=== PATIENT | male | born 1985 | race African-American/Black ===

== ENCOUNTER 2020-03-14 10:50 | Emergency (ER) | payer MEDICAID ==
[~2020-03-14] VITALS: Ht 188 cm; Wt 90.7 kg
--- NOTE | 2020-03-14 10:55 | NUR ---
AAOX3, CAME TO ER FOR MEDICAL CLEARANCE, PLAN IS TO JUMP INTO THE TRAFFIC. PATIENT WISH TO GO TO [facility] FOR VOLUNTARY ADMISSION. RR IS EVEN AND UNLABORED WITH NAD NOTED. SKIN IS WARM AND DRY. AWAITING MD FOR EVAL.
--- NOTE | 2020-03-14 11:40 | NUR ---
Workforce Planning Analyst consult for this patient was conducted as patient wanted to go voluntary to a psychiatrics facility. Patient is a 34 year-old -[place] Island[place] Male, alert and orientedx4. Patient confirmed demographics including date of and social security number. Patient reported that he does collect food stamps but would not provide approximately how much stating "varies month to month". Patient stated alcohol use varies "regular, on occasion" but did not want to elaborate. Patient reporting suicidal ideations to jump in front of a car. Patient reported schizophrenia, bipolar and depression diagnoses and reports going to a hosptial the form of him receiving his medications. Patient would like to go voluntary to [facility].
[2020-03-14 12:05] LABS: BASOPHILS % (AUTO) 0.8 % (0.0-2.0); EOSINOPHILS % (AUTO) 2.8 % (0.0-6.0); HEMATOCRIT 35 % (39-51); HEMOGLOBIN 12.4 g/dL (13.5-17.5); LYMPHOCYTES # (AUTO) 1.8 /CMM (0.8-4.8); LYMPHOCYTES % (AUTO) 44.9 % (20.0-44.0); MEAN CORPUSCULAR HGB CONC 35 g/dl (31.0-36.0); MEAN CORPUSCULAR VOLUME 78 fL (80-96); MONOCYTES # (AUTO) 0.3 /CMM (0.1-1.30); MONOCYTES % (AUTO) 6.9 % (2.0-12.0); NEUTROPHILS # (AUTO) 1.7 /CMM (1.8-8.9); NEUTROPHILS % (AUTO) 44.6 % (43.0-81.0); PLATELET COUNT (AUTO) 197 /CMM (150-450); RED BLOOD CELL COUNT(AUTO) 4.56 MIL/uL (4.5-6.0); WHITE BLOOD COUNT (AUTO) 3.9 K/uL (4.3-11.0)
[2020-03-14 12:08] LABS: APPEARANCE,URINE Clear (CLEAR); BILIRUBIN,URINE Negative (NEGATIVE); BLOOD, URINE Negative Ery/uL (NEGATIVE); COLOR,URINE Yellow (YELLOW); KETONES,URINE Negative (NEGATIVE); LEUKOCYTE ESTERASE ,URINE Negative (NEGATIVE); NITRITE, URINE Negative (NEGATIVE); PH,URINE 6.5 (5.0-8.0); PROTEIN,URINE Negative (NEGATIVE); UGLUCOSE Negative (NEGATIVE)
[2020-03-14 12:18] LABS: ALANINE AMINOTRANSFERASE 35 U/L (12-78); ALBUMIN 3.9 g/dL (3.4-5.0); ALKALINE PHOSPHATASE 55 U/L (46-116); ASPARTATE AMINOTRANSFERASE 26 U/L (15-37); BILIRUBIN,DIRECT 0.2 mg/dL (0.0-0.2); BILIRUBIN,TOTAL 0.8 mg/dL (0.2-1.0); CALCIUM, SERUM 8.7 mg/dL (8.5-10.1); CARBON DIOXIDE 31 mmol/L (21-32); CHLORIDE 105 mmol/L (98-107); CREATININE 0.9 mg/dL (0.6-1.3); GLUCOSE 94 mg/dL (74-106); POTASSIUM 3.7 mmol/L (3.5-5.1); SODIUM SERUM 141 mmol/L (136-145); UREA NITROGEN, BLOOD 13 mg/dL (7-18)
[2020-03-14 12:19] LABS: ACETAMINOPHEN < 2 ug/ml (10-30); ALCOHOL, BLOOD < 3 mg/dL (0-0); SALICYLATE 0.4 mg/dL (2.8-20.0)
--- NOTE | 2020-03-14 13:09 | NUR ---
Gauri mccann in ED - 03/14/20 at 1313 by GIOVANA TRANSFER INFO: [facility] GO TO [facility] ACCEPTED BY DR WATKINS, PLEASE CALL MEREDITH MESA FOR REPORT AT [phone] [facility] ETA 1434
--- NOTE | 2020-03-14 13:11 | NUR ---
TRANSFER INFO: PT WILL GO TO [facility] ACCEPTED BY DR WATKINS, PLEASE CALL MEREDITH MESA FOR REPORT AT [phone] [facility] ETA 1438
--- NOTE | 2020-03-14 13:12 | NUR ---
CALLED [facility] ETA 1435
[2020-03-14 13:16] VITALS: BP 118/75
--- NOTE | 2020-03-14 13:17 | NUR ---
REPORT GIVEN TO MOSHE HARPERSAMPLE COORDINATOR
--- NOTE | 2020-03-14 15:01 | NUR ---
REPORT GIVEN TO PATIENT FINANCIAL REP. PATIENT TRANSFERRED TO [facility] IN NO DSITRESS.
== END 2020-03-14 15:02 ==
LOC: ER 10:52
DX: R45.851 Suicidal ideations (principal); F20.9 Schizophrenia, unspecified; F32.9 Major depressive disorder, single episode, unspecified; Z04.6 Encounter for general psychiatric examination, requested by authority
CPT/HCPCS: 36415; 80048; 80076; 80305; 80307; 80329; 81001; 85025; 99285; G0480; 81000-TC

== ENCOUNTER 2020-07-16 05:06 | Emergency (ER) | payer MEDICAID ==
[~2020-07-16] VITALS: Ht 182.9 cm; Wt 86.2 kg
--- NOTE | 2020-07-16 05:45 | NUR ---
CALLED PT IN WR X3. NO ONE RESPONDED. WILL FOLLOW UP.
--- NOTE | 2020-07-16 06:01 | NUR ---
CALLED PT IN WR. NO ONE RESPONDED. WILL FOLLOW UP
--- NOTE | 2020-07-16 06:09 | NUR ---
called pt in wr x3. no one responded.
--- NOTE | 2020-07-16 06:27 | NUR ---
call pt in wr x3. no one responded. will follow up
--- NOTE | 2020-07-16 06:43 | NUR ---
BIBSELF HEARING VOICES +SI PLAN TO CUT HIMSELF -HI. PT AOX4 RR EVEN AND UNLABORED. NO SOB NOTED. NO NVD AT THIS TIME. NO ACUTE DISTRESS NOTED. PT WAITING FOR MD PAEZ. PT PERSONAL BELONGINGS COLLECTED, PLACED IN A STORED AREA. PT CALM AT THIS TIME. PROVIDED PT WITH PLAN OF CARE. PT VERBALIZED UNDERSTANDING. PT PROVIDED UA.
--- NOTE | 2020-07-16 07:25 | NUR ---
CALLED SECURITY FOR WANDING.
--- NOTE | 2020-07-16 07:50 | NUR ---
REPORT GIVEN TO LIBIA RUTLEDGE FOR CONTINUITY OF CARE.
[2020-07-16 08:17] LABS: BASOPHILS % (AUTO) 0.5 % (0.0-2.0); EOSINOPHILS % (AUTO) 1.2 % (0.0-6.0); HEMATOCRIT 44 % (39-51); HEMOGLOBIN 15.5 g/dL (13.5-17.5); LYMPHOCYTES # (AUTO) 1.7 /CMM (0.8-4.8); LYMPHOCYTES % (AUTO) 27.4 % (20.0-44.0); MEAN CORPUSCULAR HGB CONC 35 g/dl (31.0-36.0); MEAN CORPUSCULAR VOLUME 78 fL (80-96); MONOCYTES # (AUTO) 0.5 /CMM (0.1-1.30); MONOCYTES % (AUTO) 7.8 % (2.0-12.0); NEUTROPHILS % (AUTO) 63.1 % (43.0-81.0); PLATELET COUNT (AUTO) 263 /CMM (150-450); RED BLOOD CELL COUNT(AUTO) 5.67 MIL/uL (4.5-6.0); WHITE BLOOD COUNT (AUTO) 6.3 K/uL (4.3-11.0)
[2020-07-16 08:25] LABS: CALCIUM, SERUM 9.1 mg/dL (8.5-10.1); CARBON DIOXIDE 28 mmol/L (21-32); CHLORIDE 101 mmol/L (98-107); CREATININE 0.8 mg/dL (0.6-1.3); GLUCOSE 79 mg/dL (74-106); POTASSIUM 3.9 mmol/L (3.5-5.1); SODIUM SERUM 137 mmol/L (136-145); UREA NITROGEN, BLOOD 12 mg/dL (7-18)
[2020-07-16 08:31] LABS: ALANINE AMINOTRANSFERASE 40 U/L (12-78); ALBUMIN 4.5 g/dL (3.4-5.0); ALCOHOL, BLOOD < 3 mg/dL (0-0); ALKALINE PHOSPHATASE 66 U/L (46-116); ASPARTATE AMINOTRANSFERASE 31 U/L (15-37); BILIRUBIN,DIRECT 0.4 mg/dL (0.0-0.2); BILIRUBIN,TOTAL 1.8 mg/dL (0.2-1.0); TOTAL PROTEIN, SERUM 8.4 g/dL (6.4-8.2)
[2020-07-16 08:36] LABS: ACETAMINOPHEN < 10 ug/ml (10-30)
--- NOTE | 2020-07-16 08:46 | NUR ---
COVID NEGATIVE TEST
[2020-07-16] MEDS ORDERED: QUETIAPINE FUMARATE 100 MG TABLET PO SCH (09:00)
--- NOTE | 2020-07-16 12:59 | NUR ---
Interior Design Consultant consult for this patient was conducted as patient wanted to go voluntary to a psychiatric facility. Patient is a 34-year-old Male, alert and oriented x4. Patient reported that he does collect food stamps but would not provide approximately how much stating "varies month to month". Patient stated alcohol use varies "regular, on occasion" but did not want to elaborate. Patient denied the use of drugs and cigarettes, however, patient tested positive for Methamphetamine and Cannabinoids. Patient reporting suicidal ideations to cut his wrist with a razor. Patient reported schizophrenia, bipolar and depression diagnoses but cannot report an approximation of these diagnoses. Patient prior to speaking with this SW stated he had spoken to his aerospace engineer officer armament to notify them that the patient is currently at [facility] ED for suicidal ideation. Patient stated that his aerospace engineer officer armament would like an update regarding next step of treatment. Patient informed that at this time he is in-between housing because his aerospace engineer officer armament is looking for another appropriate location for the patient. SW and patient discussed the need for homeless community resources, patient accepted these referrals. SW and patient discussed voluntary psychiatric hospitalization and patient was in agreement. SW informed the patient that this SW would refer the patient to [facility] for voluntary psychiatric hospitalization. Patient was calm and cooperative throughout this assessment. Patient asked this SW for food and SW informed patient that this SW would alert ED Staff to order a meal for the patient. Plan: SW to fax clinicals to [facility] regarding this patients request of voluntary psychiatric hospitalization. SW also informed Michael regarding this referral. SW will provide the patient an update regarding status of voluntary psychiatric hospitalization and have the patient sign the homeless patient waiver form. SW provided the following referrals to the patient: Substance Abuse resources provided included: [facility] Substance Abuse Self-Helpline (SAS) ; CRI -HELP [address]98 [facility]. [place] [address] ; [facility] [address] [facility] [address] ; [facility] Rehabilitation Program [address]33 [facility] [address] ; [facility] 400 [facility] [id number] ; [facility] [address] [facility] [address] ; [facility] [address] [facility] [phone] ; Hygiene: [facility]: [address] [place] ; [facility] [address] [facility] ; [facility] [address], [place] . Food Resources: [place] [facility] at [facility]- [address] [place]; Meet Each Need with Dignity ([facility]) [address] [place] CampusAditya [place]; [facility] Food Pantry 4305 [facility]; [facility] 8516 [facility]. Mental Health resources provided: [facility] [address] [place] [address] ; [facility] Mental Health [place] [address] [facility] [address], [place], [place] [id number] ; Farnam Elisa [facility] [address] Pé[address]Waverly, [place] [phone] ; [facility] [address] [place], [place] [phone] Healthcare Clinics: [facility] 6551 [facility], [address] [place]. [place] ; [facility] [address] [facility] [address] [place] [address]; [facility] [address] [facility]. [place] [id number] [phone]
--- NOTE | 2020-07-16 17:00 | NUR ---
PATIENT A/OX4, BREATHING EVEN AND UNLABORED, DENIES SI/HI ANYMORE. NO DISTRESS NOTED. DR. NEAL, NEEDS ATTENDED.
[2020-07-16 17:30] VITALS: BP 129/68
--- NOTE | 2020-07-16 17:30 | NUR ---
Patient discharged to home in stable condition. Written and verbal after care instructions given. Patient verbalizes understanding of instruction.
--- NOTE | 2020-07-16 17:30 | NUR ---
Patient discharged to home in stable condition. Written and verbal after care instructions given. Patient verbalizes understanding of instruction.
== END 2020-07-16 17:31 | disposition home or self-care (01) ==
LOC: ER 05:07
DX: R45.851 Suicidal ideations (principal); F19.10 Other psychoactive substance abuse, uncomplicated; F15.10 Other stimulant abuse, uncomplicated; F20.9 Schizophrenia, unspecified; Z91.14 Patient's other noncompliance with medication regimen; Z20.828 Contact with and (suspected) exposure to other viral communicable diseases
CPT/HCPCS: 36415; 80048; 80076; 80299; 80307; 80320; 85025; 87426; 99285; C9803; G0480

== ENCOUNTER 2020-10-27 17:23 | Emergency (ER) | payer MEDICAID ==
[~2020-10-27] VITALS: Ht 185.4 cm; Wt 99.8 kg
[2020-10-27 19:13] LABS: BILIRUBIN,URINE Negative (NEGATIVE); COLOR,URINE YELLOW (YELLOW); LEUKOCYTE ESTERASE ,URINE Negative (NEGATIVE); NITRITE, URINE Negative (NEGATIVE); PH,URINE 5.5 (5.0-8.0); PROTEIN,URINE Negative (NEGATIVE); UGLUCOSE Negative (NEGATIVE)
[2020-10-27 19:23] LABS: BACTERIA,URINE Rare /HPF (None Seen); RBC,URINE NONE SEEN /HPF (0-2); SQUAMOUS EPITHELIAL CELL,UR Few /HPF (None Seen); WBC,URINE NONE SEEN /HPF (0-3)
[2020-10-27 19:45] LABS: BASOPHILS # (AUTO) 0.1 /CMM (0.0-0.2); BASOPHILS % (AUTO) 1.3 % (0.0-2.0); EOSINOPHILS % (AUTO) 3.5 % (0.0-6.0); HEMATOCRIT 39 % (39-51); HEMOGLOBIN 13.9 g/dL (13.5-17.5); LYMPHOCYTES # (AUTO) 2.5 /CMM (0.8-4.8); LYMPHOCYTES % (AUTO) 31.3 % (20.0-44.0); MEAN CORPUSCULAR HGB CONC 36 g/dl (31.0-36.0); MEAN CORPUSCULAR VOLUME 76 fL (80-96); MONOCYTES # (AUTO) 0.4 /CMM (0.1-1.30); MONOCYTES % (AUTO) 5.2 % (2.0-12.0); NEUTROPHILS # (AUTO) 4.6 /CMM (1.8-8.9); NEUTROPHILS % (AUTO) 58.7 % (43.0-81.0); PLATELET COUNT (AUTO) 277 /CMM (150-450); RED BLOOD CELL COUNT(AUTO) 5.07 MIL/uL (4.5-6.0); WHITE BLOOD COUNT (AUTO) 7.8 K/uL (4.3-11.0)
[2020-10-27] MEDS ORDERED: OLANZAPINE 10 MG VIAL IM ONE ×2 (19:53→20:00)
--- NOTE | 2020-10-27 19:56 | NUR ---
Pt medicated as ordered by Dr Chau.
[2020-10-27 20:09] LABS: ALANINE AMINOTRANSFERASE 44 U/L (12-78); ALBUMIN 4.1 g/dL (3.4-5.0); ALCOHOL, BLOOD < 3 mg/dL (0-0); ALKALINE PHOSPHATASE 82 U/L (46-116); ASPARTATE AMINOTRANSFERASE 34 U/L (15-37); BILIRUBIN,DIRECT 0.1 mg/dL (0.0-0.2); BILIRUBIN,TOTAL 0.6 mg/dL (0.2-1.0); CARBON DIOXIDE 28 mmol/L (21-32); CHLORIDE 102 mmol/L (98-107); CREATININE 0.9 mg/dL (0.6-1.3); GLUCOSE 115 mg/dL (74-106); POTASSIUM 3.6 mmol/L (3.5-5.1); SODIUM SERUM 139 mmol/L (136-145); TOTAL PROTEIN, SERUM 7.5 g/dL (6.4-8.2); UREA NITROGEN, BLOOD 11 mg/dL (7-18)
[2020-10-27 20:10] LABS: ACETAMINOPHEN < 2 ug/ml (10-30)
--- NOTE | 2020-10-27 20:15 | NUR ---
Call from lab. Rapid covid negative.
--- NOTE | 2020-10-27 21:33 | NUR ---
CLINICAL AND FACESHEET FAXED TO [facility] FOR VOLUNTARY ADMISSION.
--- NOTE | 2020-10-28 00:18 | NUR ---
TRANSFER INFORMATION: PT ACCEPTED AT [facility] ACCEPTING MD OSORIO PHONE NUMBER FOR REPORT EXT [phone]
--- NOTE | 2020-10-28 00:22 | NUR ---
[facility] 45-60MIN ETA
--- NOTE | 2020-10-28 00:49 | NUR ---
REPORT CALLED TO LIBIA DIAZ. AWAITING TRANSPORT.
[2020-10-28 01:13] VITALS: BP 153/79
--- NOTE | 2020-10-28 01:38 | NUR ---
[facility] AT BEDSIDE FOR FIRE PROTECTION INSPECTOR. REPORT GIVEN
--- NOTE | 2020-10-28 01:42 | NUR ---
PT WAS TRANSFERRED TO [facility] [place]. ALL BELONGINGS WERE PICKED UP
== END 2020-10-28 01:45 ==
LOC: ER 17:27
DX: R45.851 Suicidal ideations (principal); F15.10 Other stimulant abuse, uncomplicated; F20.9 Schizophrenia, unspecified; F31.9 Bipolar disorder, unspecified; Z91.14 Patient's other noncompliance with medication regimen; Z59.0 Homelessness; R03.0 Elevated blood-pressure reading, without diagnosis of hypertension; Z20.822 Contact with and (suspected) exposure to COVID-19
CPT/HCPCS: 36415; 80048; 80076; 80299; 80307; 80320; 81001; 82550; 82553; 85025; 87426; 96372; 99285; C9803; J3490; G0480

== ENCOUNTER 2021-05-08 07:00 | Emergency (ER) | payer MEDICAID ==
[~2021-05-08] VITALS: Ht 190.5 cm; Wt 90.7 kg
[2021-05-08 07:48] LABS: BASOPHILS % (AUTO) 0.5 % (0.0-2.0); HEMATOCRIT 40 % (39-51); HEMOGLOBIN 14.2 g/dL (13.5-17.5); LYMPHOCYTES # (AUTO) 1.6 K/uL (0.8-4.8); LYMPHOCYTES % (AUTO) 27.1 % (20.0-44.0); MEAN CORPUSCULAR HGB CONC 36 g/dl (31.0-36.0); MEAN CORPUSCULAR VOLUME 78 fL (80-96); MONOCYTES # (AUTO) 0.6 K/uL (0.1-1.30); MONOCYTES % (AUTO) 9.8 % (2.0-12.0); NEUTROPHILS # (AUTO) 3.6 K/uL (1.8-8.9); NEUTROPHILS % (AUTO) 60.6 % (43.0-81.0); PLATELET COUNT (AUTO) 230 K/uL (150-450); RED BLOOD CELL COUNT(AUTO) 5.14 MIL/uL (4.5-6.0); WHITE BLOOD COUNT (AUTO) 5.9 K/uL (4.3-11.0)
[2021-05-08 08:04] LABS: ALANINE AMINOTRANSFERASE 46 U/L (12-78); ALBUMIN 4.4 g/dL (3.4-5.0); ALKALINE PHOSPHATASE 72 U/L (46-116); ASPARTATE AMINOTRANSFERASE 36 U/L (15-37); BILIRUBIN,DIRECT 0.3 mg/dL (0.0-0.2); BILIRUBIN,TOTAL 1.6 mg/dL (0.2-1.0); CALCIUM, SERUM 8.7 mg/dL (8.5-10.1); CARBON DIOXIDE 33 mmol/L (21-32); CHLORIDE 101 mmol/L (98-107); CREATININE 0.8 mg/dL (0.6-1.3); GLUCOSE 96 mg/dL (74-106); POTASSIUM 3.6 mmol/L (3.5-5.1); SODIUM SERUM 139 mmol/L (136-145); TOTAL PROTEIN, SERUM 7.9 g/dL (6.4-8.2); UREA NITROGEN, BLOOD 17 mg/dL (7-18)
[2021-05-08 08:15] LABS: ACETAMINOPHEN < 10 ug/ml (10-30); ALCOHOL, BLOOD < 3 mg/dL (0-0)
--- NOTE | 2021-05-08 08:41 | NUR ---
COVID SWAB DONE AND SENT TO LAB
[2021-05-08 10:56] LABS: BILIRUBIN,URINE SMALL (NEGATIVE); COLOR,URINE YELLOW (YELLOW); LEUKOCYTE ESTERASE ,URINE Negative (NEGATIVE); NITRITE, URINE Negative (NEGATIVE); PROTEIN,URINE Negative (NEGATIVE); UGLUCOSE Negative (NEGATIVE)
[2021-05-08 11:16] LABS: BACTERIA,URINE Few /HPF (None Seen); RBC,URINE 0-2 /HPF (0-2); SQUAMOUS EPITHELIAL CELL,UR Few /HPF (None Seen); WBC,URINE 0-2 /HPF (0-3)
--- NOTE | 2021-05-08 12:02 | NUR ---
[facility]
--- NOTE | 2021-05-08 16:29 | NUR ---
CALLED [facility] PT ACCEPTED TO [facility] UNDER DR. OSORIO & DR. AGUILAR CALL [phone] X [phone] FOR REPORT.
--- NOTE | 2021-05-08 16:35 | NUR ---
ACCEPTED BY DR CHENEY,REPORT TO [phone]
--- NOTE | 2021-05-08 16:35 | NUR ---
CALLED [facility] WITH ETA OF 60 MINS PER ANASTACIA.
--- NOTE | 2021-05-08 16:35 | NUR ---
CALL FROM ELIER,INTAKE
--- NOTE | 2021-05-08 16:58 | NUR ---
REPORT GIVEN TO NURSE VALLADARES FROM [facility]
--- NOTE | 2021-05-08 17:19 | NUR ---
REPORT GIVEN TO AMBULANCE STAFF
[2021-05-08 17:40] VITALS: BP 135/82
--- NOTE | 2021-05-08 17:40 | NUR ---
THE PATIENT IS TRANSFERED TO [facility] IN STABLE CONDITION VIA ARRANGED TRANSPO.
== END 2021-05-08 17:40 ==
LOC: ER 07:01
DX: R45.851 Suicidal ideations (principal); F31.9 Bipolar disorder, unspecified; F20.9 Schizophrenia, unspecified; Z59.00 Homelessness unspecified; R03.0 Elevated blood-pressure reading, without diagnosis of hypertension; Z20.822 Contact with and (suspected) exposure to COVID-19; F15.10 Other stimulant abuse, uncomplicated; F17.210 Nicotine dependence, cigarettes, uncomplicated
CPT/HCPCS: 36415; 80048; 80076; 80143; 80307; 80320; 81001; 85025; 87426; 99285; C9803; G0480

== ENCOUNTER 2021-07-05 07:25 | Emergency (ER) | payer MEDICAID ==
[~2021-07-05] VITALS: Ht 188 cm; Wt 97.5 kg
--- NOTE | 2021-07-05 07:59 | NUR ---
DR BORGES AT BEDSIDE FOR EVAL.
--- NOTE | 2021-07-05 08:55 | NUR ---
COVID SWAB DONE AND SENT
[2021-07-05 09:08] LABS: BASOPHILS # (AUTO) 0.1 K/uL (0.0-0.2); EOSINOPHILS % (AUTO) 1.3 % (0.0-6.0); HEMATOCRIT 41 % (39-51); HEMOGLOBIN 14.4 g/dL (13.5-17.5); LYMPHOCYTES # (AUTO) 1.8 K/uL (0.8-4.8); LYMPHOCYTES % (AUTO) 22.1 % (20.0-44.0); MEAN CORPUSCULAR HGB CONC 35 g/dl (31.0-36.0); MEAN CORPUSCULAR VOLUME 76 fL (80-96); MONOCYTES # (AUTO) 0.9 K/uL (0.1-1.30); MONOCYTES % (AUTO) 10.4 % (2.0-12.0); NEUTROPHILS # (AUTO) 5.4 K/uL (1.8-8.9); NEUTROPHILS % (AUTO) 65.2 % (43.0-81.0); PLATELET COUNT (AUTO) 236 K/uL (150-450); RED BLOOD CELL COUNT(AUTO) 5.37 MIL/uL (4.5-6.0); WHITE BLOOD COUNT (AUTO) 8.3 K/uL (4.3-11.0)
--- NOTE | 2021-07-05 09:20 | NUR ---
PT STILL UNABLE TO PROVIDE URINE SAMPLE AT THIS TIME.
[2021-07-05 09:39] LABS: CALCIUM, SERUM 8.8 mg/dL (8.5-10.1); CARBON DIOXIDE 31 mmol/L (21-32); CHLORIDE 100 mmol/L (98-107); CREATININE 0.9 mg/dL (0.6-1.3); GLUCOSE 106 mg/dL (74-106); POTASSIUM 3.9 mmol/L (3.5-5.1); SODIUM SERUM 136 mmol/L (136-145); UREA NITROGEN, BLOOD 17 mg/dL (7-18)
[2021-07-05 09:45] LABS: ALANINE AMINOTRANSFERASE 55 U/L (12-78); ALBUMIN 4.2 g/dL (3.4-5.0); ALKALINE PHOSPHATASE 70 U/L (46-116); ASPARTATE AMINOTRANSFERASE 62 U/L (15-37); BILIRUBIN,DIRECT 0.3 mg/dL (0.0-0.2); BILIRUBIN,TOTAL 1.6 mg/dL (0.2-1.0); TOTAL PROTEIN, SERUM 7.7 g/dL (6.4-8.2)
[2021-07-05 10:01] LABS: ACETAMINOPHEN 0 ug/ml (10-30)
[2021-07-05 10:02] LABS: ALCOHOL, BLOOD < 3 mg/dL (0-0)
[2021-07-05 10:59] LABS: BILIRUBIN,URINE Negative (NEGATIVE); COLOR,URINE YELLOW (YELLOW); LEUKOCYTE ESTERASE ,URINE Negative (NEGATIVE); NITRITE, URINE Negative (NEGATIVE); PROTEIN,URINE Trace mg/dl (NEGATIVE); UGLUCOSE Negative (NEGATIVE)
[2021-07-05 11:01] LABS: BACTERIA,URINE Rare /HPF (None Seen); RBC,URINE NONE SEEN /HPF (0-2); SQUAMOUS EPITHELIAL CELL,UR Few /HPF (None Seen); WBC,URINE NONE SEEN /HPF (0-3)
--- NOTE | 2021-07-05 13:46 | NUR ---
FAXED CLINICALS TO [facility].
--- NOTE | 2021-07-05 15:47 | NUR ---
PT ACCEPTED TO [facility] REPORT: UNIT #[phone]
--- NOTE | 2021-07-05 16:08 | NUR ---
[facility] TRANSPORT [facility]IA [facility] ETA 1800 TO [facility].
--- NOTE | 2021-07-05 16:46 | NUR ---
ATTEMPTED TO GIVE REPORT, WILL CALL AGAIN
--- NOTE | 2021-07-05 17:55 | NUR ---
REPORT GIVEN TO CHERIE MELGAR
[2021-07-05 18:40] VITALS: BP 132/69
--- NOTE | 2021-07-05 19:02 | NUR ---
PICKED UP BY [facility] IN STABLE CONDITION
== END 2021-07-05 19:03 ==
LOC: ER 07:27
DX: R45.851 Suicidal ideations (principal); F15.10 Other stimulant abuse, uncomplicated; Z59.02 Unsheltered homelessness; Z20.822 Contact with and (suspected) exposure to COVID-19; F31.9 Bipolar disorder, unspecified; F20.9 Schizophrenia, unspecified
CPT/HCPCS: 36415; 80048; 80076; 80143; 80307; 80320; 81001; 85025; 87426; 99285; C9803; G0480

== ENCOUNTER 2021-09-10 09:24 | Emergency (ER) | payer MEDICAID ==
[~2021-09-10] VITALS: Ht 182.9 cm; Wt 102.1 kg
--- NOTE | 2021-09-10 10:00 | NUR ---
The patient bibs for Hearing Voices and want [place] go [place]. The patient is alert and oriented x3. Denies pain. In room air and denies SOB. Respiration regular and unlabored. Will continue to monitor the patient.
[2021-09-10 10:46] LABS: BASOPHILS # (AUTO) 0.1 K/uL (0.0-0.2); BASOPHILS % (AUTO) 0.8 % (0.0-2.0); HEMATOCRIT 45 % (39-51); HEMOGLOBIN 15.5 g/dL (13.5-17.5); LYMPHOCYTES # (AUTO) 1.5 K/uL (0.8-4.8); LYMPHOCYTES % (AUTO) 19.3 % (20.0-44.0); MEAN CORPUSCULAR HGB CONC 35 g/dl (31.0-36.0); MEAN CORPUSCULAR VOLUME 75 fL (80-96); MONOCYTES # (AUTO) 0.5 K/uL (0.1-1.30); NEUTROPHILS # (AUTO) 5.5 K/uL (1.8-8.9); NEUTROPHILS % (AUTO) 72.9 % (43.0-81.0); PLATELET COUNT (AUTO) 255 K/uL (150-450); RED BLOOD CELL COUNT(AUTO) 5.93 MIL/uL (4.5-6.0); WHITE BLOOD COUNT (AUTO) 7.6 K/uL (4.3-11.0)
--- NOTE | 2021-09-10 10:50 | NUR ---
COVID ANTIGEN SWAB DONE AND SENT TO THE LAB
[2021-09-10 11:08] LABS: ALANINE AMINOTRANSFERASE 58 U/L (12-78); ALBUMIN 4.4 g/dL (3.4-5.0); ALCOHOL, BLOOD < 3 mg/dL (0-0); ALKALINE PHOSPHATASE 77 U/L (46-116); ASPARTATE AMINOTRANSFERASE 47 U/L (15-37); BILIRUBIN,DIRECT 0.2 mg/dL (0.0-0.2); BILIRUBIN,TOTAL 1.3 mg/dL (0.2-1.0); CALCIUM, SERUM 9.8 mg/dL (8.5-10.1); CARBON DIOXIDE 28 mmol/L (21-32); CHLORIDE 100 mmol/L (98-107); CREATININE 0.9 mg/dL (0.6-1.3); GLUCOSE 108 mg/dL (74-106); POTASSIUM 4.2 mmol/L (3.5-5.1); SODIUM SERUM 136 mmol/L (136-145); TOTAL PROTEIN, SERUM 8.3 g/dL (6.4-8.2); UREA NITROGEN, BLOOD 15 mg/dL (7-18)
--- NOTE | 2021-09-10 11:12 | NUR ---
URINE COLLECTED AND SENT TO THE LAB
[2021-09-10 11:25] LABS: BILIRUBIN,URINE SMALL (NEGATIVE); COLOR,URINE YELLOW (YELLOW); LEUKOCYTE ESTERASE ,URINE NEGATIVE (NEGATIVE); NITRITE, URINE NEGATIVE (NEGATIVE); PROTEIN,URINE NEGATIVE (NEGATIVE); UGLUCOSE NEGATIVE (NEGATIVE); UROBILINOGEN,URINE 0.2 EU/dL (0.2)
--- NOTE | 2021-09-10 13:01 | NUR ---
FAXED CLINICALS TO [facility] IN[facility].
--- NOTE | 2021-09-10 16:23 | NUR ---
JOES called [facility] [phone] and spoke to KATJA Osborn regarding acceptance for Tx. Katja stated the nurse coal handling supervisor is in a meeting but they will call [facility] directly at 5 pm with decision.
[2021-09-10 16:52] LABS: ACETAMINOPHEN < 0 ug/ml (10-30)
--- NOTE | 2021-09-10 17:15 | NUR ---
THE PATIENT IS ACCEPTED TO [facility] UNDER DR BROUSSARD [facility] WILL ARRANGE TRANSPO
--- NOTE | 2021-09-10 17:21 | NUR ---
REPORT GIVEN TO NURSE BAUTISTA FROM [facility] FOR [facility]
--- NOTE | 2021-09-10 17:47 | NUR ---
INTAKE CALLED GR[facility]OOK WILL REAM CUTTER PATIENT IN 20 MINS PER PATITO.
--- NOTE | 2021-09-10 18:00 | NUR ---
local combination truck driver from [place] [facility] [place] picked up patient for psych voluntary admit NO acute changes-cooperative and easily directable
[2021-09-10 18:48] VITALS: BP 130/70
== END 2021-09-10 18:49 ==
LOC: ER 09:26
DX: R45.851 Suicidal ideations (principal); F15.10 Other stimulant abuse, uncomplicated; Z59.00 Homelessness unspecified; F20.9 Schizophrenia, unspecified; F31.9 Bipolar disorder, unspecified; Z20.822 Contact with and (suspected) exposure to COVID-19
CPT/HCPCS: 36415; 80048; 80076; 80143; 80307; 80320; 81003; 85025; 87426; 99285; C9803; G0480

== ENCOUNTER 2021-10-26 16:55 | Emergency (ER) | payer MEDICAID ==
[~2021-10-26] VITALS: Ht 188 cm; Wt 99.8 kg
[2021-10-26 17:12] VITALS: BP 120/75
--- NOTE | 2021-10-26 17:14 | NUR ---
TO ER 18,SUICIDAL PRECAUTION IMPLEMENTED,1:1 SITTER.
--- NOTE | 2021-10-26 17:15 | NUR ---
REQUESTING VOLUNTARY ADMISSION TO [facility],FEELING SUICIDAL BY CUTTING HIMSELF
[2021-10-26 17:43] LABS: BASOPHILS # (AUTO) 0.1 K/uL (0.0-0.2); BASOPHILS % (AUTO) 1.1 % (0.0-2.0); EOSINOPHILS % (AUTO) 2.5 % (0.0-6.0); HEMATOCRIT 37 % (39-51); HEMOGLOBIN 13.5 g/dL (13.5-17.5); LYMPHOCYTES # (AUTO) 2.3 K/uL (0.8-4.8); LYMPHOCYTES % (AUTO) 25.8 % (20.0-44.0); MEAN CORPUSCULAR HGB CONC 36 g/dl (31.0-36.0); MEAN CORPUSCULAR VOLUME 74 fL (80-96); MONOCYTES # (AUTO) 0.6 K/uL (0.1-1.30); MONOCYTES % (AUTO) 6.7 % (2.0-12.0); NEUTROPHILS # (AUTO) 5.8 K/uL (1.8-8.9); NEUTROPHILS % (AUTO) 63.9 % (43.0-81.0); PLATELET COUNT (AUTO) 269 K/uL (150-450); RED BLOOD CELL COUNT(AUTO) 5.04 MIL/uL (4.5-6.0); WHITE BLOOD COUNT (AUTO) 9.1 K/uL (4.3-11.0)
[2021-10-26 18:40] LABS: ALANINE AMINOTRANSFERASE 69 U/L (12-78); ALBUMIN 4.2 g/dL (3.4-5.0); ALCOHOL, BLOOD < 3 mg/dL (0-0); ALKALINE PHOSPHATASE 77 U/L (46-116); ASPARTATE AMINOTRANSFERASE 93 U/L (15-37); BILIRUBIN,DIRECT 0.2 mg/dL (0.0-0.2); BILIRUBIN,TOTAL 1.1 mg/dL (0.2-1.0); CALCIUM, SERUM 8.5 mg/dL (8.5-10.1); CARBON DIOXIDE 26 mmol/L (21-32); CHLORIDE 99 mmol/L (98-107); GLUCOSE 93 mg/dL (74-106); POTASSIUM 2.9 mmol/L (3.5-5.1); SODIUM SERUM 138 mmol/L (136-145); TOTAL PROTEIN, SERUM 7.8 g/dL (6.4-8.2); UREA NITROGEN, BLOOD 10 mg/dL (7-18)
[2021-10-26 18:41] LABS: ACETAMINOPHEN < 2 ug/ml (10-30)
--- NOTE | 2021-10-26 22:11 | NUR ---
URINE SPECIMEN COLLECTED AND SENT TO LAB.
[2021-10-26 23:20] LABS: BILIRUBIN,URINE NEGATIVE (NEGATIVE); COLOR,URINE ORANGE (YELLOW); LEUKOCYTE ESTERASE ,URINE NEGATIVE (NEGATIVE); NITRITE, URINE NEGATIVE (NEGATIVE); PH,URINE 5.5 (5.0-8.0); PROTEIN,URINE TRACE mg/dl (NEGATIVE); UGLUCOSE NEGATIVE (NEGATIVE)
[2021-10-26 23:59] LABS: BAND % (MANUAL) 1 % (0.0-5.0); BASOPHILS % (MANUAL) 1 % (0.0-2.0); EOSINOPHILS % (MANUAL) 3 % (0-4); LYMPHOCYTES % (MANUAL) 26 % (16-48)
[2021-10-27] LABS: MONOCYTES % (MANUAL) 6 % (0-11.0); NEUTROPHILS % (MANUAL) 63 (42-76)
--- NOTE | 2021-10-27 01:08 | NUR ---
FACESHEET AND CLINICALS FAXED TO [facility].
--- NOTE | 2021-10-27 03:36 | NUR ---
ACCEPTING INFO: [facility] / DR. OSORIO / NUMBER FOR REPORT: [phone]
--- NOTE | 2021-10-27 04:26 | NUR ---
[facility] ETA 1 HOUR
--- NOTE | 2021-10-27 04:36 | NUR ---
REPORT GIVEN TO EMERLINDA [facility] FOR [facility]
--- NOTE | 2021-10-27 05:30 | NUR ---
[facility] AT BEDSIDE FOR TRANSPIORT.
== END 2021-10-27 06:46 ==
LOC: ER 17:03
DX: R45.851 Suicidal ideations (principal); F20.9 Schizophrenia, unspecified; F31.9 Bipolar disorder, unspecified; Z20.822 Contact with and (suspected) exposure to COVID-19
CPT/HCPCS: 36415; 80048; 80076; 80143; 80307; 80320; 81003; 85007; 85025; 87426; 99285; C9803; G0480

== ENCOUNTER 2021-12-14 01:43 | Emergency (ER) | payer MEDICAID ==
[~2021-12-14] VITALS: Ht 188 cm; Wt 108.9 kg
[2021-12-14] MEDS ORDERED: QUETIAPINE FUMARATE 25 MG TABLET ONE (02:17)
--- NOTE | 2021-12-14 02:20 | NUR ---
BIBS FOR C/O HEARING VOICES AND SI. REQUESTING VOLUNTARY PSYCH ADMISSION. PATIENT IS A/O X 4, RR EVEN AND UNLABORED NO SOB NOTED. PATIENT NOTED WITH STEADY GAIT. PT TAKEN TO ER BED 18. PATIENT PLACED IN HOSPITAL GOWN, BELONGING TAKEN AND PLACED IN PT LOCKER. SITTER AT BEDSIDE. PT VSS, PT AFEBRILE. WILL CONTINUE TO MONITOR.
--- NOTE | 2021-12-14 02:28 | NUR ---
URINE COLLECTED SENT TO LAB
--- NOTE | 2021-12-14 02:29 | NUR ---
COVID SWAB COLLECTED SENT TO LAB
[2021-12-14] MEDS ORDERED: QUETIAPINE FUMARATE 25 MG TABLET PO SCH (02:30)
[2021-12-14 02:32] LABS: BASOPHILS % (AUTO) 0.6 % (0.0-2.0); EOSINOPHILS % (AUTO) 3.1 % (0.0-6.0); HEMATOCRIT 42 % (39-51); HEMOGLOBIN 14.7 g/dL (13.5-17.5); LYMPHOCYTES # (AUTO) 2.9 K/uL (0.8-4.8); MEAN CORPUSCULAR HGB CONC 35 g/dl (31.0-36.0); MEAN CORPUSCULAR VOLUME 74 fL (80-96); MONOCYTES # (AUTO) 0.5 K/uL (0.1-1.30); MONOCYTES % (AUTO) 6.8 % (2.0-12.0); NEUTROPHILS # (AUTO) 3.8 K/uL (1.8-8.9); NEUTROPHILS % (AUTO) 50.5 % (43.0-81.0); PLATELET COUNT (AUTO) 241 K/uL (150-450); RED BLOOD CELL COUNT(AUTO) 5.61 MIL/uL (4.5-6.0); WHITE BLOOD COUNT (AUTO) 7.5 K/uL (4.3-11.0)
[2021-12-14 02:42] LABS: CARBON DIOXIDE 35 mmol/L (21-32); CHLORIDE 103 mmol/L (98-107); CREATININE 1.1 mg/dL (0.6-1.3); GLUCOSE 71 mg/dL (74-106); POTASSIUM 3.3 mmol/L (3.5-5.1); SODIUM SERUM 142 mmol/L (136-145); UREA NITROGEN, BLOOD 11 mg/dL (7-18)
[2021-12-14 02:49] LABS: ALANINE AMINOTRANSFERASE 60 U/L (12-78); ALBUMIN 4.5 g/dL (3.4-5.0); ALKALINE PHOSPHATASE 77 U/L (46-116); ASPARTATE AMINOTRANSFERASE 44 U/L (15-37); BILIRUBIN,DIRECT 0.1 mg/dL (0.0-0.2); BILIRUBIN,TOTAL 0.8 mg/dL (0.2-1.0); TOTAL PROTEIN, SERUM 8.4 g/dL (6.4-8.2)
[2021-12-14 02:51] LABS: ACETAMINOPHEN 0 ug/ml (10-30); ALCOHOL, BLOOD < 3 mg/dL (0-0)
--- NOTE | 2021-12-14 04:31 | NUR ---
PROVIDED PT WITH WARM BLANKET, WILL CONTINUE TO MONITOR
[2021-12-14 04:47] LABS: BILIRUBIN,URINE SMALL (NEGATIVE); COLOR,URINE DARK YELLOW (YELLOW); LEUKOCYTE ESTERASE ,URINE NEGATIVE (NEGATIVE); NITRITE, URINE NEGATIVE (NEGATIVE); PH,URINE 5.5 (5.0-8.0); PROTEIN,URINE NEGATIVE (NEGATIVE); UGLUCOSE NEGATIVE (NEGATIVE)
--- NOTE | 2021-12-14 05:12 | NUR ---
FACESHEET AND CLINICALS FAXED TO [facility],.
--- NOTE | 2021-12-14 09:04 | NUR ---
CALLED [facility] REGARDING PT ACCEPTANCE AND WAS NOTIFIED THAT THE FACILITY IS STILL WAITING FOR DISCHARGES FOR THE PT TO BE ACCEPTED.
[2021-12-14 11:03] VITALS: BP 125/89
--- NOTE | 2021-12-14 11:30 | NUR ---
[facility] CALLED WITH PT ACCEPTANCE UNDER THE CARE OF DR. FELICIANO NUMBER FOR REPORT [phone] EXT. [phone]
--- NOTE | 2021-12-14 11:31 | NUR ---
CALLED [facility] AND SET UP BLS TRANSPORT ETA 1200
--- NOTE | 2021-12-14 13:12 | NUR ---
REPORT GIVEN TO YURIDIA FOR HAI
--- NOTE | 2021-12-14 13:13 | NUR ---
[facility] ARRIVED TO TRANSPORT PT TO [facility], PT IS AMNULATORY AND TRANSPORTED IN STABLE CONDITION.
== END 2021-12-14 13:14 ==
LOC: ER 01:45
DX: R45.851 Suicidal ideations (principal); F20.9 Schizophrenia, unspecified; F31.9 Bipolar disorder, unspecified; Z59.00 Homelessness unspecified; Z20.822 Contact with and (suspected) exposure to COVID-19; F15.10 Other stimulant abuse, uncomplicated
CPT/HCPCS: 36415; 80048; 80076; 80143; 80307; 80320; 81003; 85025; 87426; 99285; C9803; G0480

== ENCOUNTER 2022-02-25 07:08 | Emergency (ER) | payer MEDICAID ==
[~2022-02-25] VITALS: Ht 188 cm; Wt 108.9 kg
--- NOTE | 2022-02-25 07:15 | NUR ---
pt self presents to ed c/o suicidal ideation w/ plan to "cut his wrist." denies hi. pt seen in ed multiple times for same complaints. cooperative to staff. requesting voluntary psychiatric admission to [facility]. stable vitals. awaiting md chin.
--- NOTE | 2022-02-25 07:18 | NUR ---
seen and evaluated by reina mejia. with orders, will carry out.
[2022-02-25 07:38] LABS: BASOPHILS % (AUTO) 0.4 % (0.0-2.0); EOSINOPHILS % (AUTO) 1.8 % (0.0-6.0); HEMATOCRIT 43 % (39-51); HEMOGLOBIN 15.1 g/dL (13.5-17.5); LYMPHOCYTES # (AUTO) 2.2 K/uL (0.8-4.8); LYMPHOCYTES % (AUTO) 27.5 % (20.0-44.0); MEAN CORPUSCULAR HGB CONC 35 g/dl (31.0-36.0); MEAN CORPUSCULAR VOLUME 74 fL (80-96); MONOCYTES # (AUTO) 0.6 K/uL (0.1-1.30); MONOCYTES % (AUTO) 7.2 % (2.0-12.0); NEUTROPHILS # (AUTO) 5.1 K/uL (1.8-8.9); NEUTROPHILS % (AUTO) 63.1 % (43.0-81.0); PLATELET COUNT (AUTO) 256 K/uL (150-450); RED BLOOD CELL COUNT(AUTO) 5.75 MIL/uL (4.5-6.0)
[2022-02-25 07:55] LABS: CALCIUM, SERUM 8.9 mg/dL (8.5-10.1); CARBON DIOXIDE 32 mmol/L (21-32); CHLORIDE 98 mmol/L (98-107); CREATININE 0.9 mg/dL (0.6-1.3); GLUCOSE 101 mg/dL (74-106); POTASSIUM 3.3 mmol/L (3.5-5.1); SODIUM SERUM 134 mmol/L (136-145); UREA NITROGEN, BLOOD 11 mg/dL (7-18)
[2022-02-25 08:09] LABS: ALANINE AMINOTRANSFERASE 153 U/L (12-78); ALBUMIN 4.8 g/dL (3.4-5.0); ALKALINE PHOSPHATASE 73 U/L (46-116); ASPARTATE AMINOTRANSFERASE 124 U/L (15-37); BILIRUBIN,DIRECT 0.4 mg/dL (0.0-0.2); BILIRUBIN,TOTAL 1.8 mg/dL (0.2-1.0); TOTAL PROTEIN, SERUM 8.9 g/dL (6.4-8.2)
[2022-02-25 08:10] LABS: ACETAMINOPHEN < 10 ug/ml (10-30); ALCOHOL, BLOOD < 3 mg/dL (0-0)
[2022-02-25 08:40] LABS: BILIRUBIN,URINE SMALL (NEGATIVE); COLOR,URINE YELLOW (YELLOW); LEUKOCYTE ESTERASE ,URINE NEGATIVE (NEGATIVE); NITRITE, URINE NEGATIVE (NEGATIVE); PROTEIN,URINE NEGATIVE (NEGATIVE); UGLUCOSE NEGATIVE (NEGATIVE)
[2022-02-25 08:58] LABS: RBC,URINE 0-2 /HPF (0-2); WBC,URINE NONE SEEN /HPF (0-3)
[2022-02-25 08:59] LABS: BACTERIA,URINE None seen /HPF (None Seen); SQUAMOUS EPITHELIAL CELL,UR Rare /HPF (None Seen)
--- NOTE | 2022-02-25 10:48 | NUR ---
JOSE faxed clinicals to [facility] [[address] [place] [address] FAX:[phone]] for voluntary psychiatric treatment.
--- NOTE | 2022-02-25 10:48 | NUR ---
SS consult: SS Consult requested for SI. The pt. is a 36-year-old Black male patient who came in for SI w/ a plan to cut his wrist per EMR. Upon SS consult, the pt. is Alert & Oriented x 4 and makes piercing eye contact. The pt. appears disheveled with dysphoric mood & affect. Pt. denies HI and denies visual hallucinations. Per pt. he has been diagnosed with schizophrenia in the past and is allegedly compliant with Seroquel medication. Pt. stated he has intermittent thoughts of suicide and denies a plan at this time. Pt. states he has current auditory hallucinations "about powerful things".Pt. presents bizarre, slightly paranoid. SW explored pt.'s living situation. Patient states he is currently experiencing homelessness. Pt. is guarded and refused to provide detailed information. SW explored pt.'s drug & ETOH use. Pt. denies any drug use and states he drinks alcohol "just a little". Pt. is ambulatory and independent with all his ADL's per EMR. SW explored pt.'s support system. Pt. states he has no support system. Pt. reports he receives General Relief and food stamps. Plan: SW was referred pt. to [facility] for inpatient psychiatric treatment. SW provided pt. with homeless and mental health resources, and he refused them. Pt. refused to sign homeless waiver and it was placed in the pt.'s chart. Year-round shelters: [facility] [address] [place], [place] [address] ; [facility] [address] [place] [address]; [facility] [id number] [facility] [address] Hygiene: [facility]: [address] [place] ; [facility] [address] [facility] ; [facility] [address] Roh[address] . Food Resources: [place] [facility] at [facility]- [address]. [place]; Meet Each Need with Dignity ([facility]) [address] [facility]; [facility] Food Pantry 4390 [facility]; [facility] 8596 Keerthi [facility] [place]. Mental Health resources provided: [facility] [address] [place], [place] [address] ; [facility] [address] [facility] [address], [place] [address] ; [facility] Urgent Care Center [address] [facility] [place], [place] [id number] ; [facility] [address] [place], [place] [address] Healthcare Clinics: [facility] 6551 Rohit GarciaPerry [facility], [address] [place]. [place] ; [facility] [address] [facility] [address] [place] [address]; [facility] [address] [facility]. [place] [phone] Counseling--[facility]patient [facility] 44[address] [facility], [place] [address] (Specializes in in-depth psychotherapy for emotional distress: anxiety, depression, interpersonal conflicts, life transitions, childhood abuse) [facility] [address] [place] [address] (Assist with solving problem marital difficulties, separation & divorce, aging parents, & grief, chronic & terminal illness) [facility] [address] [place] [address] (Deal with loss & grief, anxiety, marital difficulties) Homebound/Mental Health Services [address] [facility], [address] [place], [place] [id number] (Provide in-home mental services to people who are incapable of leaving their homes) Organization for Needs of the Elderly Senior Service/Resource Center [address] [place] [address] [facility] 65[address] [facility] [place] [address] PSYCHIATRIC OUTPATIENT SERVICES [facility] Partial Hospitalization and Intensive Outpatient Program (Managed Care and [place] Only)[address] [facility] [phone] [facility] Partial Hospitalization and Outpatient [id number] [place], [place] [phone] [facility] [place] [id number] [facility] [address] [place], [place] [phone] [facility] Partial Hospitalization and Outpatient [id number] Emelita [facility] [place], [phone] Substance Abuse resources provided included: [facility] Substance Abuse Self-Helpline ([facility]) ; CRI -HELP [address] [facility]. [place] [address] ; [facility] [address] [facility] [address] ; [facility] Rehabilitation Program [address] [address] vdSt. [facility] Psychiatric [facility] [address] ; [place] [address] [facility] [address] ; [facility] 4940 [facility] [address] ; [facility] 909 [facility] [phone] ; [facility] Substance Abuse Helpline([facility] ; [facility] ; [facility] [place]; [facility] [place]; Cri-Help [place]; I-[facility] Recovery Rohit Garciasheron; [place] [facility]; [place] Kasey; [facility] Sindi; [facility], [facility]. Gloria Klein; Alcoholics Anonymous -SFV; Aditya ; Marijuana Anonymous -SFV; Narcotics Anonymous [email or web address];
[2022-02-25 11:45] VITALS: BP 130/70
--- NOTE | 2022-02-25 12:01 | NUR ---
PT ACCEPTED TO [facility] UNDER DR. BROUSSARD CALL [phone] FOR REPORT CERTIFIED NEURODIAGNOSTIC TECHNOLOGIST ETA 1234
--- NOTE | 2022-02-25 12:23 | NUR ---
REPORT GIVEN TO MOSHE REZA FOR HAI
--- NOTE | 2022-02-25 12:25 | NUR ---
PICKED UP BY [facility] IN STABLE CONDITION
== END 2022-02-25 12:30 ==
LOC: ER 07:13
DX: F15.151 Other stimulant abuse with stimulant-induced psychotic disorder with hallucinations (principal); R45.851 Suicidal ideations; Z20.822 Contact with and (suspected) exposure to COVID-19; F20.9 Schizophrenia, unspecified; F31.9 Bipolar disorder, unspecified; Z59.00 Homelessness unspecified; R17 Unspecified jaundice
CPT/HCPCS: 99285; 85025; 80048; 80076; 85007; 81001; 36415; 87426; 80143; 80320; 80307; C9803; G0480

== ENCOUNTER 2022-03-18 07:40 | Emergency (ER) | payer MEDICAID ==
[~2022-03-18] VITALS: Ht 188 cm; Wt 104.3 kg
--- NOTE | 2022-03-18 07:40 | NUR ---
BIBS WANTING VOLUNTARY ADMISSION TO [facility] +SI STATING HER WANTS TO RUN INTO TRAFFIC, -HI. PT PLACE IN HOSPITAL GOWN, BELONGING TAKEN A PLACED IN ANOTHER ROOM. SAFETY MEASURED APPLIED.
--- NOTE | 2022-03-18 07:59 | NUR ---
COVID TEST AND URINE SAMPLE COLLECTED AND SENT
--- NOTE | 2022-03-18 08:02 | NUR ---
LAB AT BEDSIDE
--- NOTE | 2022-03-18 08:06 | NUR ---
MEAL TRAY PROVIDED
[2022-03-18 08:27] LABS: BASOPHILS % (AUTO) 0.5 % (0.0-2.0); EOSINOPHILS % (AUTO) 1.3 % (0.0-6.0); HEMATOCRIT 44 % (39-51); HEMOGLOBIN 15.3 g/dL (13.5-17.5); LYMPHOCYTES # (AUTO) 2.7 K/uL (0.8-4.8); LYMPHOCYTES % (AUTO) 33.8 % (20.0-44.0); MEAN CORPUSCULAR HGB CONC 35 g/dl (31.0-36.0); MEAN CORPUSCULAR VOLUME 76 fL (80-96); MONOCYTES # (AUTO) 0.8 K/uL (0.1-1.30); MONOCYTES % (AUTO) 9.7 % (2.0-12.0); NEUTROPHILS # (AUTO) 4.4 K/uL (1.8-8.9); NEUTROPHILS % (AUTO) 54.7 % (43.0-81.0); PLATELET COUNT (AUTO) 261 K/uL (150-450); RED BLOOD CELL COUNT(AUTO) 5.84 MIL/uL (4.5-6.0); WHITE BLOOD COUNT (AUTO) 7.9 K/uL (4.3-11.0)
[2022-03-18 08:35] LABS: BILIRUBIN,URINE SMALL (NEGATIVE); COLOR,URINE DARK YELLOW (YELLOW); LEUKOCYTE ESTERASE ,URINE NEGATIVE (NEGATIVE); NITRITE, URINE NEGATIVE (NEGATIVE); PH,URINE 5.5 (5.0-8.0); PROTEIN,URINE NEGATIVE (NEGATIVE); UGLUCOSE NEGATIVE (NEGATIVE); UROBILINOGEN,URINE 0.2 EU/dL (0.2)
[2022-03-18 08:40] LABS: ALANINE AMINOTRANSFERASE 42 U/L (12-78); ALBUMIN 4.6 g/dL (3.4-5.0); ALKALINE PHOSPHATASE 82 U/L (46-116); ASPARTATE AMINOTRANSFERASE 33 U/L (15-37); BILIRUBIN,DIRECT 0.2 mg/dL (0.0-0.2); BILIRUBIN,TOTAL 1.2 mg/dL (0.2-1.0); TOTAL PROTEIN, SERUM 8.5 g/dL (6.4-8.2)
[2022-03-18 08:51] LABS: ACETAMINOPHEN 0 ug/ml (10-30); ALCOHOL, BLOOD < 3 mg/dL (0-0)
[2022-03-18 08:53] LABS: CALCIUM, SERUM 9.5 mg/dL (8.5-10.1); CREATININE 1.1 mg/dL (0.6-1.3); POTASSIUM 3.8 mmol/L (3.5-5.1)
--- NOTE | 2022-03-18 10:05 | NUR ---
SW faxed clinicals to [facility] TEL:[phone] fax:[phone] for [facility] [[address] [place] [address] ] voluntary psychiatric treatment.
[2022-03-18 13:30] VITALS: BP 141/80
--- NOTE | 2022-03-18 14:51 | NUR ---
PT ACCEPTED TO [facility] UNDER DR. BROUSSARD PLEASE CALL [phone] FOR REPORT TRANPORTATION WILL BE HERE AT 1530 PER ZEV.
--- NOTE | 2022-03-18 15:20 | NUR ---
REPORT GIVEN TO NURSE CHAWLA FOR HAI
--- NOTE | 2022-03-18 15:25 | NUR ---
PT TRANSFERRED TO [facility]
== END 2022-03-18 15:57 ==
LOC: ER 07:43
DX: R45.851 Suicidal ideations (principal); F31.9 Bipolar disorder, unspecified; F20.9 Schizophrenia, unspecified; Z59.00 Homelessness unspecified; R82.5 Elevated urine levels of drugs, medicaments and biological substances; Z20.822 Contact with and (suspected) exposure to COVID-19
CPT/HCPCS: 99285; 85025; 80048; 80076; 81003; 36415; 87426; 80143; 80320; 80307; C9803; G0480

== ENCOUNTER 2022-05-17 02:14 | Emergency (ER) | payer MEDICAID ==
[~2022-05-17] VITALS: Ht 188 cm; Wt 99.8 kg
[2022-05-17 04:58] LABS: BILIRUBIN,URINE SMALL (NEGATIVE); COLOR,URINE DARK YELLOW (YELLOW); LEUKOCYTE ESTERASE ,URINE NEGATIVE (NEGATIVE); NITRITE, URINE NEGATIVE (NEGATIVE); PROTEIN,URINE NEGATIVE (NEGATIVE); UGLUCOSE NEGATIVE (NEGATIVE)
[2022-05-17 04:59] LABS: BASOPHILS % (AUTO) 0.5 % (0.0-2.0); HEMATOCRIT 39 % (39-51); HEMOGLOBIN 13.8 g/dL (13.5-17.5); LYMPHOCYTES # (AUTO) 2.2 K/uL (0.8-4.8); LYMPHOCYTES % (AUTO) 34.3 % (20.0-44.0); MEAN CORPUSCULAR HGB CONC 36 g/dl (31.0-36.0); MEAN CORPUSCULAR VOLUME 74 fL (80-96); MONOCYTES # (AUTO) 0.4 K/uL (0.1-1.30); MONOCYTES % (AUTO) 6.2 % (2.0-12.0); NEUTROPHILS # (AUTO) 3.6 K/uL (1.8-8.9); PLATELET COUNT (AUTO) 283 K/uL (150-450); RED BLOOD CELL COUNT(AUTO) 5.24 MIL/uL (4.5-6.0); WHITE BLOOD COUNT (AUTO) 6.3 K/uL (4.3-11.0)
[2022-05-17 05:02] LABS: BACTERIA,URINE Rare /HPF (None Seen); RBC,URINE 0-2 /HPF (0-2); SQUAMOUS EPITHELIAL CELL,UR Few /HPF (None Seen); WBC,URINE 0-2 /HPF (0-3)
[2022-05-17 05:35] LABS: ALANINE AMINOTRANSFERASE 41 U/L (12-78); ALBUMIN 4.2 g/dL (3.4-5.0); ALKALINE PHOSPHATASE 66 U/L (46-116); ASPARTATE AMINOTRANSFERASE 25 U/L (15-37); BILIRUBIN,DIRECT 0.2 mg/dL (0.0-0.2); BILIRUBIN,TOTAL 1.1 mg/dL (0.2-1.0); CALCIUM, SERUM 8.8 mg/dL (8.5-10.1); CARBON DIOXIDE 30 mmol/L (21-32); CHLORIDE 104 mmol/L (98-107); GLUCOSE 78 mg/dL (74-106); POTASSIUM 3.2 mmol/L (3.5-5.1); SODIUM SERUM 139 mmol/L (136-145); TOTAL PROTEIN, SERUM 7.6 g/dL (6.4-8.2); UREA NITROGEN, BLOOD 11 mg/dL (7-18)
[2022-05-17 05:42] LABS: ACETAMINOPHEN 0 ug/ml (10-30); ALCOHOL, BLOOD < 3 mg/dL (0-0)
--- NOTE | 2022-05-17 06:05 | NUR ---
FACESHEET AND CLINICALS FAXED TO [facility].
[2022-05-17] MEDS ORDERED: POTASSIUM CHLORIDE 20 MEQ TAB.PRT.SR PO ONE (06:08)
[2022-05-17] MEDS: POTASSIUM CHLORIDE 20 MEQ TAB.PRT.SR PO ONE (06:08)
--- NOTE | 2022-05-17 09:41 | NUR ---
CALLED INTAKE WILL CALL US BACK.
--- NOTE | 2022-05-17 12:23 | NUR ---
FAXED CLINICALS OF MD NOTES TO [facility].
--- NOTE | 2022-05-17 14:33 | NUR ---
PT ACCEPTED TO [facility] UNDER DR. BROUSSARD UNIT 2 PLEASE CALL [phone] FOR REPORT. ART WILL CALL WITH TRANSFER INFORMATION.
--- NOTE | 2022-05-17 14:45 | NUR ---
TRANSPORT WILL BE HERE IN 30-45 MINS.
--- NOTE | 2022-05-17 17:30 | NUR ---
Patient discharged to [facility] in stable condition. Written and verbal after care instructions given. Patient verbalizes understanding of instruction.
[2022-05-17 19:17] VITALS: BP 132/74
== END 2022-05-17 17:30 ==
LOC: ER 02:17
DX: R45.851 Suicidal ideations (principal); Z20.822 Contact with and (suspected) exposure to COVID-19; Z59.00 Homelessness unspecified; F20.9 Schizophrenia, unspecified; F31.9 Bipolar disorder, unspecified; E87.6 Hypokalemia
CPT/HCPCS: 99285; 85025; 80048; 80076; 81001; 36415; 87426; 80143; 80320; 80307; C9803; G0480

== ENCOUNTER 2022-06-09 07:47 | Emergency (ER) | payer MEDICAID ==
[~2022-06-09] VITALS: Ht 188 cm; Wt 99.8 kg
--- NOTE | 2022-06-09 09:05 | NUR ---
PT CHANGED TO GOWN. SECURITY CALLED AT BEDSIDE FOR WANDING. SAFETY MEASURES IN PLACE.
[2022-06-09 09:06] LABS: BASOPHILS # (AUTO) 0.1 K/uL (0.0-0.2); BASOPHILS % (AUTO) 0.7 % (0.0-2.0); HEMATOCRIT 43 % (39-51); HEMOGLOBIN 15.1 g/dL (13.5-17.5); LYMPHOCYTES # (AUTO) 1.8 K/uL (0.8-4.8); LYMPHOCYTES % (AUTO) 22.9 % (20.0-44.0); MEAN CORPUSCULAR HGB CONC 35 g/dl (31.0-36.0); MEAN CORPUSCULAR VOLUME 75 fL (80-96); MONOCYTES # (AUTO) 0.5 K/uL (0.1-1.30); MONOCYTES % (AUTO) 6.2 % (2.0-12.0); NEUTROPHILS # (AUTO) 5.5 K/uL (1.8-8.9); NEUTROPHILS % (AUTO) 69.2 % (43.0-81.0); PLATELET COUNT (AUTO) 312 K/uL (150-450); WHITE BLOOD COUNT (AUTO) 7.9 K/uL (4.3-11.0)
--- NOTE | 2022-06-09 09:10 | NUR ---
[facility] AT BEDSIDE FOR BLOOD DRAW
--- NOTE | 2022-06-09 09:12 | NUR ---
COVID SWAB AND URINE SAMPLE COLLECTED AND SENT TO LAB
[2022-06-09 09:38] LABS: CALCIUM, SERUM 9.3 mg/dL (8.5-10.1); CARBON DIOXIDE 33 mmol/L (21-32); CHLORIDE 99 mmol/L (98-107); CREATININE 0.9 mg/dL (0.6-1.3); GLUCOSE 94 mg/dL (74-106); POTASSIUM 3.5 mmol/L (3.5-5.1); SODIUM SERUM 137 mmol/L (136-145); UREA NITROGEN, BLOOD 13 mg/dL (7-18)
[2022-06-09 09:43] LABS: ALANINE AMINOTRANSFERASE 42 U/L (12-78); ALBUMIN 4.7 g/dL (3.4-5.0); ALCOHOL, BLOOD < 3 mg/dL (0-0); ALKALINE PHOSPHATASE 72 U/L (46-116); ASPARTATE AMINOTRANSFERASE 25 U/L (15-37); BILIRUBIN,DIRECT 0.2 mg/dL (0.0-0.2); BILIRUBIN,TOTAL 1.1 mg/dL (0.2-1.0); TOTAL PROTEIN, SERUM 8.6 g/dL (6.4-8.2)
[2022-06-09 09:49] LABS: ACETAMINOPHEN < 10 ug/ml (10-30)
[2022-06-09 10:11] LABS: BILIRUBIN,URINE NEGATIVE (NEGATIVE); COLOR,URINE YELLOW (YELLOW); LEUKOCYTE ESTERASE ,URINE NEGATIVE (NEGATIVE); NITRITE, URINE NEGATIVE (NEGATIVE); PROTEIN,URINE NEGATIVE (NEGATIVE); UGLUCOSE NEGATIVE (NEGATIVE); UROBILINOGEN,URINE 0.2 EU/dL (0.2)
--- NOTE | 2022-06-09 10:48 | NUR ---
CLINICALS FAXED TO [facility].
--- NOTE | 2022-06-09 12:29 | NUR ---
PT ACCEPTED AT [facility] BY . REPORT NUMB [phone]. TRANSPORT ETA 1330 PER ZARI.
[2022-06-09 12:50] LABS: LYMPHOCYTES % (MANUAL) 20 % (16-48); MONOCYTES % (MANUAL) 6 % (0-11.0); NEUTROPHILS % (MANUAL) 74 (42-76)
--- NOTE | 2022-06-09 13:07 | NUR ---
ATTEMPTED TO GIVE REPORT TO NUMBER PROVIDED; LEFT VOICE MESSAGE.
--- NOTE | 2022-06-09 13:17 | NUR ---
Patient discharged to [facility] in stable condition, accompanied by transportation. Written and verbal after care instructions given. Patient verbalizes understanding of instruction.
[2022-06-09 13:19] VITALS: BP 141/77
== END 2022-06-09 13:21 ==
LOC: ER 07:51
DX: R45.851 Suicidal ideations (principal); F31.9 Bipolar disorder, unspecified; F20.9 Schizophrenia, unspecified; Z59.00 Homelessness unspecified; F17.200 Nicotine dependence, unspecified, uncomplicated; F19.10 Other psychoactive substance abuse, uncomplicated; I10 Essential (primary) hypertension; Z20.822 Contact with and (suspected) exposure to COVID-19
CPT/HCPCS: 99285; 85025; 80048; 80076; 85007; 81003; 36415; 87426; 80143; 80320; 80307; C9803; G0480

== ENCOUNTER 2022-06-23 19:18 | Emergency (ER) | payer MEDICAID ==
[~2022-06-23] VITALS: Ht 185.4 cm; Wt 99.8 kg
[2022-06-23 19:47] VITALS: BP 131/81
--- NOTE | 2022-06-23 19:47 | NUR ---
BLAIR [place] FROM DIALYSIS CENTER C/O S/I HEARING VOICES. PLAN TO RUN INTO TRAFFIC. REQUESTING VOLUNTARY ADMIT TO PSYCH HOSP. PT A/OX4. TOLERATING R/A WELL WITH NO RESP DISTRESS. CHANGED INTO GOWN, BELONGINGS COLLECTED, AND KEPT IN STORAGE. PT WANDED BY SECURITY. SAFETY MEASURES IN PLACE.
--- NOTE | 2022-06-23 19:49 | NUR ---
URINE COLLECTED AND SENT TO LAB
--- NOTE | 2022-06-23 19:57 | NUR ---
COVID ANTIGEN SWAB COLLECTED AND SENT TO LAB
--- NOTE | 2022-06-23 20:03 | NUR ---
HEAT AND FROST INSULATOR AT PT'S BEDSIDE
[2022-06-23 20:11] LABS: BASOPHILS % (AUTO) 0.6 % (0.0-2.0); HEMATOCRIT 43 % (39-51); LYMPHOCYTES # (AUTO) 2.8 K/uL (0.8-4.8); LYMPHOCYTES % (AUTO) 35.2 % (20.0-44.0); MEAN CORPUSCULAR HGB CONC 35 g/dl (31.0-36.0); MEAN CORPUSCULAR VOLUME 74 fL (80-96); MONOCYTES # (AUTO) 0.6 K/uL (0.1-1.30); MONOCYTES % (AUTO) 7.1 % (2.0-12.0); NEUTROPHILS # (AUTO) 4.4 K/uL (1.8-8.9); NEUTROPHILS % (AUTO) 55.1 % (43.0-81.0); PLATELET COUNT (AUTO) 287 K/uL (150-450); RED BLOOD CELL COUNT(AUTO) 5.84 MIL/uL (4.5-6.0); WHITE BLOOD COUNT (AUTO) 7.9 K/uL (4.3-11.0)
[2022-06-23 20:48] LABS: ALBUMIN 4.4 g/dL (3.4-5.0); BILIRUBIN,DIRECT 0.2 mg/dL (0.0-0.2); CALCIUM, SERUM 9.3 mg/dL (8.5-10.1); CREATININE 0.9 mg/dL (0.6-1.3); POTASSIUM 3.4 mmol/L (3.5-5.1)
[2022-06-23 21:21] LABS: BILIRUBIN,URINE NEGATIVE (NEGATIVE); COLOR,URINE YELLOW (YELLOW); LEUKOCYTE ESTERASE ,URINE NEGATIVE (NEGATIVE); NITRITE, URINE NEGATIVE (NEGATIVE); PROTEIN,URINE NEGATIVE (NEGATIVE); UGLUCOSE NEGATIVE (NEGATIVE); UROBILINOGEN,URINE 0.2 EU/dL (0.2)
--- NOTE | 2022-06-24 00:33 | NUR ---
FACESHEET AND CLINICALS FAXED TO [facility].
--- NOTE | 2022-06-24 02:00 | NUR ---
PT ACCEPTED TO [facility] BY DR LEAHY. # FOR REPORT [phone].
--- NOTE | 2022-06-24 02:07 | NUR ---
[facility] CALLED FOR BLS GOING TO [place] ETA - TWO HOURS
--- NOTE | 2022-06-24 02:46 | NUR ---
REPORT GIVEN TO EMS.
--- NOTE | 2022-06-24 02:47 | NUR ---
REPORT GIVEN TO MAURICIO REZA FROM [facility] FOR REPORT [phone].
--- NOTE | 2022-06-24 03:05 | NUR ---
[facility] AT BEDSIDE FOR TRANSPORT TO [facility].
== END 2022-06-24 03:05 ==
LOC: ER 19:22
DX: R45.851 Suicidal ideations (principal); Z59.00 Homelessness unspecified; Z20.822 Contact with and (suspected) exposure to COVID-19; F20.9 Schizophrenia, unspecified; F31.9 Bipolar disorder, unspecified
CPT/HCPCS: 99285; 85025; 80048; 80076; 81003; 36415; 87426; 80143; 80320; 80307; C9803; G0480

== ENCOUNTER 2023-08-28 00:23 | Emergency (ER) | payer MEDICAID ==
[~2023-08-28] VITALS: Ht 182.9 cm; Wt 90.7 kg
[2023-08-28 04:08] VITALS: TEMP 98
[2023-08-28 04:39] LABS: BASOPHILS # (AUTO) 0.1 K/uL (0.0-0.2); BASOPHILS % (AUTO) 1.1 % (0.0-2.0); EOSINOPHILS # (AUTO) 0.1 K/uL (0.0-0.7); EOSINOPHILS % (AUTO) 2.3 % (0.0-6.0); HEMATOCRIT 43 % (39-51); HEMOGLOBIN 15.3 g/dL (13.5-17.5); LYMPHOCYTES # (AUTO) 1.5 K/uL (0.8-4.8); LYMPHOCYTES % (AUTO) 23.8 % (20.0-44.0); MEAN CORPUSCULAR HEMOGLOBIN 27 PG (26.0-33.0); MEAN CORPUSCULAR HGB CONC 35 g/dl (31.0-36.0); MEAN CORPUSCULAR VOLUME 77 fL (80-96); MONOCYTES # (AUTO) 0.4 K/uL (0.1-1.30); MONOCYTES % (AUTO) 6.6 % (2.0-12.0); NEUTROPHILS # (AUTO) 4.2 K/uL (1.8-8.9); NEUTROPHILS % (AUTO) 66.2 % (43.0-81.0); PLATELET COUNT (AUTO) 249 K/uL (150-450); RED BLOOD CELL COUNT(AUTO) 5.63 MIL/uL (4.5-6.0); WHITE BLOOD COUNT (AUTO) 6.3 K/uL (4.3-11.0)
[2023-08-28 04:42] LABS: APPEARANCE,URINE SLIGHTLY CLOUDY (CLEAR); BILIRUBIN,URINE NEGATIVE (NEGATIVE); BLOOD, URINE NEGATIVE Ery/uL (NEGATIVE); COLOR,URINE YELLOW (YELLOW); KETONES,URINE NEGATIVE (NEGATIVE); LEUKOCYTE ESTERASE ,URINE NEGATIVE (NEGATIVE); NITRITE, URINE NEGATIVE (NEGATIVE); PROTEIN,URINE NEGATIVE (NEGATIVE); UGLUCOSE NEGATIVE (NEGATIVE); UROBILINOGEN,URINE 0.2 EU/dL (0.2)
[2023-08-28 04:53] LABS: AMPHETAMINE, URINE POSITIVE (NEGATIVE); BARBITURATE, URINE NEGATIVE (NEGATIVE); BENZODIAZEPINE, URINE NEGATIVE (NEGATIVE); CANNABINOID, URINE NEGATIVE (NEGATIVE); COCCAINE, URINE NEGATIVE (NEGATIVE); OPIATE, URINE NEGATIVE (NEGATIVE); PHENCYCLIDINE SCREEN,URINE NEGATIVE (NEGATIVE)
[2023-08-28 05:01] LABS: ALANINE AMINOTRANSFERASE 46 U/L (12-78); ALBUMIN 4.6 g/dL (3.4-5.0); ALCOHOL, BLOOD < 3 mg/dL (0-10); ALKALINE PHOSPHATASE 70 U/L (46-116); ASPARTATE AMINOTRANSFERASE 22 U/L (15-37); BILIRUBIN,DIRECT 0.2 mg/dL (0.0-0.2); CALCIUM, SERUM 9.5 mg/dL (8.5-10.1); CARBON DIOXIDE 31 mmol/L (21-32); CHLORIDE 97 mmol/L (98-107); CREATININE 0.9 mg/dL (0.6-1.3); GLUCOSE 94 mg/dL (74-106); POTASSIUM 3.8 mmol/L (3.5-5.1); SODIUM SERUM 136 mmol/L (136-145); TOTAL PROTEIN, SERUM 8.5 g/dL (6.4-8.2); UREA NITROGEN, BLOOD 12 mg/dL (7-18)
[2023-08-28 05:11] LABS: ACETAMINOPHEN <10 ug/ml (10-30); SALICYLATE < 0.2 mg/dL (2.8-20.0)
[2023-08-28 12:07] VITALS: BP 142/86; O2SAT 100
== END 2023-08-28 12:07 ==
LOC: ER 00:25
DX: R45.851 Suicidal ideations (principal); F20.9 Schizophrenia, unspecified; F31.9 Bipolar disorder, unspecified; F17.200 Nicotine dependence, unspecified, uncomplicated; Z59.00 Homelessness unspecified; Z20.822 Contact with and (suspected) exposure to COVID-19
CPT/HCPCS: 36415; 80048-TC; 80076-TC; 85025-TC; G0480

== ENCOUNTER 2024-06-18 07:27 | Emergency (ER) | payer MEDICAID, OTHER ==
[~2024-06-18] VITALS: Ht 188 cm; Wt 90.7 kg
[2024-06-18 08:42] LABS: BASOPHILS # (AUTO) 0.1 K/uL (0.0-0.2); BASOPHILS % (AUTO) 0.8 % (0.0-2.0); EOSINOPHILS # (AUTO) 0.1 K/uL (0.0-0.7); HEMATOCRIT 43 % (39-51); HEMOGLOBIN 15.4 g/dL (13.5-17.5); LYMPHOCYTES # (AUTO) 1.5 K/uL (0.8-4.8); LYMPHOCYTES % (AUTO) 20.4 % (20.0-44.0); MEAN CORPUSCULAR HEMOGLOBIN 28 PG (26.0-33.0); MEAN CORPUSCULAR HGB CONC 36 g/dl (31.0-36.0); MEAN CORPUSCULAR VOLUME 78 fL (80-96); MONOCYTES # (AUTO) 0.3 K/uL (0.1-1.30); MONOCYTES % (AUTO) 3.9 % (2.0-12.0); NEUTROPHILS # (AUTO) 5.4 K/uL (1.8-8.9); NEUTROPHILS % (AUTO) 73.9 % (43.0-81.0); PLATELET COUNT (AUTO) 249 K/uL (150-450); RED BLOOD CELL COUNT(AUTO) 5.54 MIL/uL (4.5-6.0); RED CELL DISTRIBUTION WIDTH 15.1 % (11.5-15.0); WHITE BLOOD COUNT (AUTO) 7.4 K/uL (4.3-11.0)
[2024-06-18 09:01] LABS: APPEARANCE,URINE CLEAR (CLEAR); BILIRUBIN,URINE NEGATIVE (NEGATIVE); BLOOD, URINE NEGATIVE Ery/uL (NEGATIVE); COLOR,URINE YELLOW (YELLOW); KETONES,URINE NEGATIVE (NEGATIVE); LEUKOCYTE ESTERASE ,URINE NEGATIVE (NEGATIVE); NITRITE, URINE NEGATIVE (NEGATIVE); PROTEIN,URINE NEGATIVE (NEGATIVE); UGLUCOSE NEGATIVE (NEGATIVE); UROBILINOGEN,URINE 0.2 EU/dL (0.2)
[2024-06-18 09:04] LABS: AMPHETAMINE, URINE POSITIVE (NEGATIVE); BARBITURATE, URINE NEGATIVE (NEGATIVE); BENZODIAZEPINE, URINE NEGATIVE (NEGATIVE); CANNABINOID, URINE NEGATIVE (NEGATIVE); COCCAINE, URINE NEGATIVE (NEGATIVE); OPIATE, URINE NEGATIVE (NEGATIVE); PHENCYCLIDINE SCREEN,URINE NEGATIVE (NEGATIVE)
[2024-06-18 09:04] LABS: ALANINE AMINOTRANSFERASE 43 U/L (12-78); ALBUMIN 4.3 g/dL (3.4-5.0); ALCOHOL, BLOOD 70 mg/dL (0-10); ALKALINE PHOSPHATASE 70 U/L (46-116); ASPARTATE AMINOTRANSFERASE 28 U/L (15-37); BILIRUBIN,DIRECT 0.2 mg/dL (0.0-0.2); BILIRUBIN,TOTAL 0.9 mg/dL (0.2-1.0); CALCIUM, SERUM 9.3 mg/dL (8.5-10.1); CARBON DIOXIDE 30 mmol/L (21-32); CHLORIDE 101 mmol/L (98-107); CREATININE 0.9 mg/dL (0.6-1.3); GLUCOSE 99 mg/dL (74-106); POTASSIUM 3.5 mmol/L (3.5-5.1); SODIUM SERUM 140 mmol/L (136-145); TOTAL PROTEIN, SERUM 7.8 g/dL (6.4-8.2); UREA NITROGEN, BLOOD 9 mg/dL (7-18)
[2024-06-18 09:14] LABS: ACETAMINOPHEN <10 ug/ml (10-30); SALICYLATE 0.4 mg/dL (2.8-20.0)
[2024-06-18 17:00] VITALS: BP 132/64; TEMP 98.1; O2SAT 99
== END 2024-06-18 18:46 ==
LOC: ER 07:28
DX: R45.851 Suicidal ideations (principal); F17.200 Nicotine dependence, unspecified, uncomplicated; F20.9 Schizophrenia, unspecified; F31.9 Bipolar disorder, unspecified; Z59.00 Homelessness unspecified; Z20.822 Contact with and (suspected) exposure to COVID-19
CPT/HCPCS: 36415; 80048-TC; 80076-TC; 85025-TC; G0480

== ENCOUNTER 2024-07-26 17:46 | Emergency (ER) | payer MEDICAID | END 2024-07-26 19:03 | disposition left against medical advice (07) | LOC: ER 18:23 | DX: Z53.21 Procedure and treatment not carried out due to patient leaving prior to being seen by health care provider (principal) ==

== ENCOUNTER → 2024-07-31 | Emergency (ER) | payer MEDICAID ==
[~2024-07-31] VITALS: Ht 188 cm; Wt 88.5 kg
[2024-07-31 08:01] LABS: BASOPHILS # (AUTO) 0.1 K/uL (0.0-0.2); BASOPHILS % (AUTO) 0.5 % (0.0-2.0); EOSINOPHILS # (AUTO) 0.3 K/uL (0.0-0.7); EOSINOPHILS % (AUTO) 3.1 % (0.0-6.0); HEMATOCRIT 41 % (39-51); HEMOGLOBIN 14.8 g/dL (13.5-17.5); LYMPHOCYTES # (AUTO) 1.5 K/uL (0.8-4.8); LYMPHOCYTES % (AUTO) 16.8 % (20.0-44.0); MEAN CORPUSCULAR HEMOGLOBIN 28 PG (26.0-33.0); MEAN CORPUSCULAR HGB CONC 36 g/dl (31.0-36.0); MEAN CORPUSCULAR VOLUME 77 fL (80-96); MONOCYTES # (AUTO) 0.5 K/uL (0.1-1.30); NEUTROPHILS # (AUTO) 6.7 K/uL (1.8-8.9); NEUTROPHILS % (AUTO) 73.6 % (43.0-81.0); PLATELET COUNT (AUTO) 242 K/uL (150-450); RED BLOOD CELL COUNT(AUTO) 5.33 MIL/uL (4.5-6.0); RED CELL DISTRIBUTION WIDTH 14.9 % (11.5-15.0); WHITE BLOOD COUNT (AUTO) 9.2 K/uL (4.3-11.0)
[2024-07-31 08:01] LABS: APPEARANCE,URINE CLEAR (CLEAR); BILIRUBIN,URINE 1+ (NEGATIVE); BLOOD, URINE NEGATIVE Ery/uL (NEGATIVE); COLOR,URINE YELLOW (YELLOW); KETONES,URINE 1+ mg/dL (NEGATIVE); LEUKOCYTE ESTERASE ,URINE NEGATIVE (NEGATIVE); NITRITE, URINE NEGATIVE (NEGATIVE); PH,URINE 5.5 (5.0-8.0); PROTEIN,URINE TRACE mg/dl (NEGATIVE); UGLUCOSE NEGATIVE (NEGATIVE)
[2024-07-31 08:03] LABS: ADD URINE CULTURE NO; BACTERIA,URINE Rare /HPF (None Seen); MUCUS,URINE Moderate /LPF (None Seen); RBC,URINE 0-2 /HPF (0-2); SQUAMOUS EPITHELIAL CELL,UR Few /HPF (None Seen); URINE AMORPHOUS URATE Few /HPF (None Seen); WBC,URINE 0-2 /HPF (0-3)
[2024-07-31 08:12] LABS: CALCIUM, SERUM 9.1 mg/dL (8.5-10.1); CARBON DIOXIDE 35 mmol/L (21-32); CHLORIDE 101 mmol/L (98-107); CREATININE 1.1 mg/dL (0.6-1.3); GLUCOSE 80 mg/dL (74-106); POTASSIUM 3.3 mmol/L (3.5-5.1); SODIUM SERUM 139 mmol/L (136-145); UREA NITROGEN, BLOOD 9 mg/dL (7-18)
[2024-07-31 08:17] LABS: ALANINE AMINOTRANSFERASE 26 U/L (12-78); ALBUMIN 3.9 g/dL (3.4-5.0); ALKALINE PHOSPHATASE 88 U/L (46-116); ASPARTATE AMINOTRANSFERASE 14 U/L (15-37); BILIRUBIN,DIRECT 0.2 mg/dL (0.0-0.2); BILIRUBIN,TOTAL 0.9 mg/dL (0.2-1.0); TOTAL PROTEIN, SERUM 7.7 g/dL (6.4-8.2)
[2024-07-31 08:17] LABS: BARBITURATE, URINE NEGATIVE (NEGATIVE); BENZODIAZEPINE, URINE NEGATIVE (NEGATIVE); CANNABINOID, URINE NEGATIVE (NEGATIVE); OPIATE, URINE NEGATIVE (NEGATIVE); PHENCYCLIDINE SCREEN,URINE NEGATIVE (NEGATIVE)
[2024-07-31 08:18] LABS: AMPHETAMINE, URINE POSITIVE (NEGATIVE); COCCAINE, URINE POSITIVE (NEGATIVE)
[2024-07-31 08:19] LABS: ACETAMINOPHEN <10 ug/ml (10-30); ALCOHOL, BLOOD < 3 mg/dL (0-10); SALICYLATE < 0.2 mg/dL (2.8-20.0)
[2024-07-31 12:00] VITALS: BP 148/81; TEMP 98.3; O2SAT 99
== END ==
LOC: ER 06:17
DX: R45.851 Suicidal ideations (principal); F31.9 Bipolar disorder, unspecified; F20.9 Schizophrenia, unspecified; F17.200 Nicotine dependence, unspecified, uncomplicated; Z20.822 Contact with and (suspected) exposure to COVID-19; Z59.00 Homelessness unspecified
CPT/HCPCS: 36415; 80048-TC; 80076-TC; 81001; 85025-TC; G0480

== ENCOUNTER 2024-08-13 05:19 | Emergency (ER) | payer MEDICAID ==
[~2024-08-13] VITALS: Ht 188 cm; Wt 99.8 kg
[2024-08-13 06:22] LABS: APPEARANCE,URINE CLEAR (CLEAR); BILIRUBIN,URINE NEGATIVE (NEGATIVE); BLOOD, URINE NEGATIVE Ery/uL (NEGATIVE); COLOR,URINE YELLOW (YELLOW); KETONES,URINE NEGATIVE (NEGATIVE); LEUKOCYTE ESTERASE ,URINE NEGATIVE (NEGATIVE); NITRITE, URINE NEGATIVE (NEGATIVE); PROTEIN,URINE NEGATIVE (NEGATIVE); UGLUCOSE NEGATIVE (NEGATIVE)
[2024-08-13 06:45] LABS: BARBITURATE, URINE NEGATIVE (NEGATIVE); BENZODIAZEPINE, URINE NEGATIVE (NEGATIVE); CANNABINOID, URINE NEGATIVE (NEGATIVE); COCCAINE, URINE NEGATIVE (NEGATIVE); OPIATE, URINE NEGATIVE (NEGATIVE); PHENCYCLIDINE SCREEN,URINE NEGATIVE (NEGATIVE)
[2024-08-13 06:46] LABS: AMPHETAMINE, URINE POSITIVE (NEGATIVE)
[2024-08-13 06:48] LABS: BASOPHILS % (AUTO) 0.3 % (0.0-2.0); EOSINOPHILS # (AUTO) 0.2 K/uL (0.0-0.7); EOSINOPHILS % (AUTO) 2.4 % (0.0-6.0); HEMATOCRIT 34 % (39-51); HEMOGLOBIN 12.3 g/dL (13.5-17.5); LYMPHOCYTES # (AUTO) 1.4 K/uL (0.8-4.8); LYMPHOCYTES % (AUTO) 17.7 % (20.0-44.0); MEAN CORPUSCULAR HEMOGLOBIN 27 PG (26.0-33.0); MEAN CORPUSCULAR HGB CONC 36 g/dl (31.0-36.0); MEAN CORPUSCULAR VOLUME 76 fL (80-96); MONOCYTES # (AUTO) 0.4 K/uL (0.1-1.30); MONOCYTES % (AUTO) 5.6 % (2.0-12.0); NEUTROPHILS # (AUTO) 5.7 K/uL (1.8-8.9); PLATELET COUNT (AUTO) 248 K/uL (150-450); RED BLOOD CELL COUNT(AUTO) 4.52 MIL/uL (4.5-6.0); RED CELL DISTRIBUTION WIDTH 14.7 % (11.5-15.0); WHITE BLOOD COUNT (AUTO) 7.7 K/uL (4.3-11.0)
[2024-08-13 06:50] LABS: CALCIUM, SERUM 8.8 mg/dL (8.5-10.1); CREATININE 0.8 mg/dL (0.6-1.3); POTASSIUM 3.1 mmol/L (3.5-5.1)
[2024-08-13 06:56] LABS: ALBUMIN 3.4 g/dL (3.4-5.0); BILIRUBIN,DIRECT 0.2 mg/dL (0.0-0.2); BILIRUBIN,TOTAL 0.6 mg/dL (0.2-1.0); TOTAL PROTEIN, SERUM 7.3 g/dL (6.4-8.2)
[2024-08-13 06:59] LABS: SALICYLATE 0.5 mg/dL (2.8-20.0)
[2024-08-13] MEDS ORDERED: POTASSIUM CHLORIDE 20 MEQ TAB.PRT.SR PO ONE (08:50)
[2024-08-13] MEDS: POTASSIUM CHLORIDE 20 MEQ TAB.PRT.SR PO ONE (08:52)
[2024-08-13 10:00] VITALS: BP 132/66; TEMP 98.3; O2SAT 100
== END 2024-08-13 16:00 ==
LOC: ER 05:19
DX: F15.10 Other stimulant abuse, uncomplicated (principal); F17.200 Nicotine dependence, unspecified, uncomplicated; F20.9 Schizophrenia, unspecified; F31.9 Bipolar disorder, unspecified; Z59.00 Homelessness unspecified; Z20.822 Contact with and (suspected) exposure to COVID-19
CPT/HCPCS: 36415; 80048-TC; 80076-TC; 85025-TC; G0480